=== PATIENT | female | born 1995 | race Caucasian/White ===

== ENCOUNTER 2022-08-25 14:24 | Emergency (ER) | payer OTHER ==
[2022-08-25 14:30] VITALS: BP 128/84; PULSE 108; RESP 18; TEMP 97.3; BMI 27.3
[2022-08-25] MEDS ORDERED: morphine CARPU-JECT 4 MG/1 ML DISP.SYRIN IVPUSH ONE ×2 (14:44→15:24)
[2022-08-25] MEDS ORDERED: morphine SULFATE 4 MG/ML VIAL ONE ×2 (14:44→14:49)
[2022-08-25] MEDS ORDERED: FENTANYL CITRATE/PF 50 MCG/ML VIAL ONE (15:26)
[2022-08-25] MEDS ORDERED: LIDOCAINE HCL 2% (20ML MULTI-DOSE VIAL) ONE (15:28)
== END 2022-08-25 16:42 | disposition home or self-care (01) ==
LOC: JER 14:24
PROC: 0RSKXZZ Reposition Left Shoulder Joint, External Approach (ICD-10-PCS; principal; 2022-08-25)
PROC: 3E033GC Introduction of Other Therapeutic Substance into Peripheral Vein, Percutaneous Approach (ICD-10-PCS; 2022-08-25)
PROC: 3E033GC Introduction of Other Therapeutic Substance into Peripheral Vein, Percutaneous Approach (ICD-10-PCS; 2022-08-25)
DX: S43.085A Other dislocation of left shoulder joint, initial encounter (principal); M25.512 Pain in left shoulder; X58.XXXA Exposure to other specified factors, initial encounter
CPT/HCPCS: 73030-TC-LT-FY; 99284-25